=== PATIENT | male | born 1995 | race Caucasian/White ===

== ENCOUNTER 2019-07-21 08:21 | Emergency (ER) | payer OTHER ==
[~2019-07-21] VITALS: Ht 167.6 cm; Wt 76.3 kg
[2019-07-21] MEDS ORDERED: KETOROLAC 60 MG/2 ML VIAL (J1885) IM ONE (09:00)
--- NOTE | 2019-07-21 09:21 | REP ---
Five views lumbar spine: 07/21/2019. Indication: Low back pain following injury. Comparison: None. Findings: There is no acute fracture, subluxation or dislocation. Alignment is within anatomical limits. No significant soft tissue abnormalities are detected. Neural foraminal narrowing is present at L5/S1. Impression: No acute osseous injury of the lumbar spine. Electronically Signed by Mik Soria DO 07/21/2019 09:12 A
[2019-07-21] MEDS ORDERED: ROBA750T4 PO (09:47)
[2019-07-21] MEDS ORDERED: KETO10TAB PO (09:47)
[2019-07-21 09:53] VITALS: BP 133/73
== END 2019-07-21 09:54 | disposition home or self-care (01) ==
LOC: M ED 08:21
DX: M54.16 Radiculopathy, lumbar region (principal); F17.210 Nicotine dependence, cigarettes, uncomplicated
CPT/HCPCS: 72110; 96372; 99283; J1885

== ENCOUNTER 2019-09-27 18:42 | Emergency (ER) | payer OTHER ==
[~2019-09-27] VITALS: Ht 167.6 cm; Wt 75.0 kg
[2019-09-27 18:42] VITALS: BP 128/84
[~2019-09-27 18:42] MED LIST: KETO10TAB PO; ROBA750T4 PO
[2019-09-27] MEDS ORDERED: tylenol (18:48)
== END 2019-09-27 22:38 | disposition left against medical advice (07) ==
LOC: M ED 18:42
DX: Z53.21 Procedure and treatment not carried out due to patient leaving prior to being seen by health care provider (principal)